=== PATIENT | female | born 1965 | race Caucasian/White ===

== ENCOUNTER 2022-08-10 16:19 | Emergency (ER) | payer SELFPAY ==
[~2022-08-10] VITALS: Ht 162.6 cm; Wt 74.8 kg
[2022-08-10 16:23] VITALS: BP 144/77
[2022-08-10] MEDS ORDERED: ACETAMINOPHEN 325 MG TAB PO ONE (17:45)
--- NOTE | 2022-08-10 17:58 | NUR ---
PT TAKEN TO CT
--- NOTE | 2022-08-10 18:14 | NUR ---
NO ANSWER FROM FACILITY.
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
[2022-08-10] MEDS ORDERED: ACET-2619 PO (19:22)
[2022-08-10 19:34] VITALS: BP 135/74
--- NOTE | 2022-08-10 20:49 | NUR ---
Patient went back to facility via [facility].
== END 2022-08-10 19:33 | disposition home or self-care (01) ==
LOC: MED 16:19
DX: S00.83XA Contusion of other part of head, initial encounter (principal); Y04.8XXA Assault by other bodily force, initial encounter; Y93.89 Activity, other specified; Y92.89 Other specified places as the place of occurrence of the external cause; Y99.8 Other external cause status
CPT/HCPCS: 70450; 70486; 99284